=== PATIENT | female | born 1950 | race Caucasian/White ===

== ENCOUNTER 2021-11-09 17:55 | Emergency (ER) | payer MEDICARE, OTHER ==
--- NOTE | 2021-11-09 18:11 | ERPHSYRPT ---
- History of Present Illness Time Seen by Provider: 11/09/21 18:11 Source: patient Exam Limitations: no limitations Physician History: This is a 71-year-old white female who was carrying groceries to her residence and lost her footing fell back and hit the back of her head. She did not lose consciousness. Patient does take Plavix at night. Patient has a history of arrhythmias, gastroesophageal reflux disease, pacemaker placement, anxiety and TIAs in the past. Occurred: just prior to arrival Severity: mild Head Injury Location: occipital Method of Injury: direct blow Loss of Consciousness: no loss of consciousness Associated Symptoms: denies symptoms Allergies/Adverse Reactions: niacin [Niacin] Allergy (Severe, Verified 11/09/21 18:13) red thru "all my body", "called rescue cause of my breathing" prednisone Allergy (Intermediate, Verified 11/09/21 18:13) red flushed face benzonatate [Benzonatate] Allergy (Mild, Verified 11/09/21 18:13) red flushed face hydrocodone bitartrate [From Vicodin] Allergy (Mild, Verified 11/09/21 18:13) red flushed face nifedipine [From Procardia XL] Allergy (Mild, Verified 11/09/21 18:13) red flushed face propoxyphene napsylate [From Darvocet-N 100] Allergy (Mild, Verified 11/09/21 18:13) red flushed face prednisolone Adverse Reaction (Intermediate, Verified 11/09/21 18:13) "face flushes" Home Medications: Buspirone HCl [Buspar] 7.5 mg PO BID 09/13/19 [History] Clopidogrel Bisulfate [PLAVIX 75 MG Tablet] 75 mg PO DAILY 09/13/19 [History] Cyanocobalamin 500 Mcg [Vitamin B-12 500 MCG] 1,000 mcg PO DAILY 09/13/19 [History] Dexlansoprazole [Dexilant] 60 mg PO DAILY 09/13/19 [History] Diazepam [Valium] 2 mg PO BID 09/13/19 [History] Duloxetine HCl [Cymbalta] 60 mg PO DAILY 09/13/19 [History] Metoprolol Tartrate 25 mg [Lopressor 25MG Tab] 25 mg PO BID 09/13/19 [History] Multivitamin [Multivitamins] 6 ea PO DAILY 09/13/19 [History] Pregabalin [Lyrica 75 mg Cap] 75 mg PO BID 09/13/19 [History] Hx Tetanus, Diphtheria Vaccination/Date Given: Yes Hx Influenza Vaccination/Date Given: Yes (2010) Hx Pneumococcal Vaccination/Date Given: Yes (2006) Travel Risk - International Travel Have you traveled outside of the country in past 3 weeks: No - Coronavirus Screening Are you exhibiting any of the following symptoms?: No Close contact with a COVID-19 positive Pt in past 14-21 Days: No - Review of Systems Constitutional: No Symptoms Eyes: No Symptoms Ears, Nose, & Throat: No Symptoms Respiratory: No Symptoms Cardiac: No Symptoms Abdominal/Gastrointestinal: No Symptoms Genitourinary Symptoms: No Symptoms Musculoskeletal: No Symptoms Skin: No Symptoms Neurological: Headache (Mild localized occipital) Psychological: No Symptoms Endocrine: No Symptoms Hematologic/Lymphatic: No Symptoms Immunological/Allergic: No Symptoms All Other Systems: Reviewed and Negative - Past Medical History Pertinent Past Medical History: Yes Neurological History: TIA ENT History: Cataracts Cardiac History: Arrhythmia, Other Respiratory History: No Pertinent History Endocrine Medical History: No Pertinent History Musculoskeletal History: Osteoarthritis GI Medical History: GERD, Gallbladder Disease History: No Pertinent History Psycho-Social History: Anxiety, Depression Female Reproductive Disorders: No Pertinent History Other Medical History: TIA in 2002, Pacemaker, L2-L5 buldging discs - Past Surgical History Past Surgical History: Yes Neuro Surgical History: No Pertinent History Cardiac: Pacemaker Respiratory: No Pertinent History Gastrointestinal: Cholecystectomy Genitourinary: No Pertinent History Musculoskeletal: Other Female Surgical History: Hysterectomy Other Surgical History: Foot Surgery, lucille.Carpal Tunnel, bariatric surgery-2008, barretts esoph. - Social History Smoking Status: Never smoker Exposure to second hand smoke: No Drug Use: none Patient Lives Alone: No - Nursing Vital Signs Nursing Vital Signs: Initial Vital Signs Temperature 96.3 F 11/09/21 18:00 Pulse Rate 77 11/09/21 18:00 Respiratory Rate 18 11/09/21 18:00 Blood Pressure 148/86 11/09/21 18:00 O2 Sat by Pulse Oximetry 100 11/09/21 18:00 Pain Scale Pain Intensity 5 - Nathaniel Coma Score Best Eye Response (Nathaniel): (4) open spontaneously Best Verbal Response (Nathaniel): (5) oriented Best Motor Response ([place]): (6) obeys commands Nathaniel Total: 15 - Physical Exam General Appearance: no apparent distress, alert, anxiety Head Injury: tenderness (Septal region. No lacerations no abrasions) Eye Exam: bilateral eye: normal inspection, PERRL, EOMI ENT Exam: airway nml Neck Exam: supple, trachea midline, full range of motion, normal alignment, normal inspection Cardiovascular/Respiratory Exam: chest non-tender, no respiratory distress Gastrointestinal/Abdominal Exam: soft, non tender, no distention Pelvic Exam: not done Rectal Exam: not done Back Exam: normal inspection, normal range of motion, No CVA tenderness, No vertebral tenderness Extremity Exam: non-tender, normal range of motion, normal inspection Mental Status Exam: alert, oriented x 3, cooperative author agent Exam: normal hearing, normal speech, PERRL Coordination/Gait Exam: normal finger to nose, normal gait, normal cerebellar function Motor/Sensory Exam: no motor deficit, no sensory deficit, no pronator drift Skin Exam: normal color, warm, dry Lymphatic Exam: No adenopathy SpO2 Interpretation: normal O2 Delivery: Room Air - Course Nursing assessment & vital signs reviewed: Yes Ordered Tests: Active Orders 24 hr Category Date Time Status HEAD WITHOUT CONTRAST [CT] Stat Exams 11/09/21 18:11 Taken - Progress Progress: unchanged Progress Note: 11/09/21 19:10 CAT scan of the head without contrast shows no acute intracranial abnormality. Counseled pt/family regarding: diagnosis, need for follow-up, rad results - Departure Departure Disposition: Home Clinical Impression: Head injury Condition: Stable Critical Care Time: No Referrals: LEEANN ESPARZA [Primary Care Provider] - Follow up/PCP as directed Additional Instructions: Ice pack to tender area 3 times a day for 48 hours. Hold your Plavix tonight and restart tomorrow evening. Return to the emergency department if you are having severe headaches, visual changes, vomiting issues.
[2021-11-09 19:07] VITALS: BP 124/80; PULSE 72; O2SAT 95
--- NOTE | 2021-11-09 19:33 | XRAY ---
Indication: Posterior head injury following fall. Blood thinner therapy. Multiple contiguous axial images obtained through the head without contrast. Comparison: February 04, 2016 Stable remote lacunar infarct left thalamus. No acute intracranial hemorrhage, abnormal extra-axial fluid collection, or mass effect. Fourth ventricle is midline without hydrocephalus. Mejias-white matter differentiation preserved. Bony calvarium intact. Visualized paranasal sinuses and mastoid air cells are clear. Impression: Stable remote lacunar infarct left thalamus. Remaining CT head without contrast exam is negative. Comment: Preliminary interpretation made by [facility]. No critical discrepancy.
== END 2021-11-09 19:18 | disposition home or self-care (01) ==
LOC: ED 17:55
DX: S09.90XA Unspecified injury of head, initial encounter (principal); W19.XXXA Unspecified fall, initial encounter; Z79.02 Long term (current) use of antithrombotics/antiplatelets; Z79.899 Other long term (current) drug therapy
CPT/HCPCS: 70450; 99282

== ENCOUNTER 2024-10-30 15:02 | Emergency (ER) | payer MEDICARE, OTHER ==
[2024-10-30 16:00] VITALS: RESP 18; TEMP 97.4
--- NOTE | 2024-10-30 16:10 | ERPHSYRPT ---
- History of Present Illness Time Seen by Provider: 10/30/24 16:00 Source: patient Exam Limitations: no limitations Physician History: Patient is a 74-year-old female presents to our ED for evaluation of dysuria urgency and frequency. Patient has a history of recurrent UTI. She just completed her third round of Macrobid. Patient has had urine cultures which revealed the urine to be sensitive to Macrobid. No other systemic manifestations. No back pain. No fever no nausea no vomiting. Patient otherwise feels well. Daughter at bedside. They voiced no other complaints or concerns at this time. Patient taking [id number] Azo prior to arrival. Patient currently resting comfortably. Portions of this note were created with voice recognition technology. There may be grammatical, spelling, punctuation or sound alike errors Timing/Duration: today Severity: moderate Modifying Factors: Improves With: nothing Associated Symptoms: denies symptoms Allergies/Adverse Reactions: niacin [Niacin] Allergy (Severe, Verified 11/09/21 18:13) red thru "all my body", "called rescue cause of my breathing" prednisone Allergy (Intermediate, Verified 11/09/21 18:13) red flushed face benzonatate [Benzonatate] Allergy (Mild, Verified 11/09/21 18:13) red flushed face hydrocodone bitartrate [From Vicodin] Allergy (Mild, Verified 11/09/21 18:13) red flushed face nifedipine [From Procardia XL] Allergy (Mild, Verified 11/09/21 18:13) red flushed face propoxyphene napsylate [From Darvocet-N 100] Allergy (Mild, Verified 11/09/21 18:13) red flushed face prednisolone Adverse Reaction (Intermediate, Verified 11/09/21 18:13) "face flushes" Home Medications: Buspirone HCl [Buspar] 7.5 mg PO BID 09/13/19 [History] Clopidogrel Bisulfate [PLAVIX 75 MG Tablet] 75 mg PO DAILY 09/13/19 [History] Cyanocobalamin 500 Mcg [Vitamin B-12 500 MCG] 1,000 mcg PO DAILY 09/13/19 [History] Dexlansoprazole [Dexilant] 60 mg PO DAILY 09/13/19 [History] Diazepam [Valium] 2 mg PO BID 09/13/19 [History] Duloxetine HCl [Cymbalta] 60 mg PO DAILY 09/13/19 [History] Metoprolol Tartrate 25 mg [Lopressor 25MG Tab] 25 mg PO BID 09/13/19 [History] Multivitamin [Multivitamins] 6 ea PO DAILY 09/13/19 [History] Pregabalin [Lyrica 75 mg Cap] 75 mg PO BID 09/13/19 [History] Hx Tetanus, Diphtheria Vaccination/Date Given: Yes Hx Influenza Vaccination/Date Given: Yes (2010) Hx Pneumococcal Vaccination/Date Given: Yes (2006) - Review of Systems All Other Systems: Reviewed and Negative - Past Medical History Pertinent Past Medical History: Yes Neurological History: TIA ENT History: Cataracts Cardiac History: Arrhythmia, Other Respiratory History: No Pertinent History Endocrine Medical History: No Pertinent History Musculoskeletal History: Osteoarthritis GI Medical History: GERD, Gallbladder Disease History: No Pertinent History Psycho-Social History: Anxiety, Depression Female Reproductive Disorders: No Pertinent History Other Medical History: TIA in 2002, Pacemaker, L2-L5 buldging discs - Past Surgical History Past Surgical History: Yes Neuro Surgical History: No Pertinent History Cardiac: Pacemaker Respiratory: No Pertinent History Gastrointestinal: Cholecystectomy Genitourinary: No Pertinent History Musculoskeletal: Other Female Surgical History: Hysterectomy Other Surgical History: Foot Surgery, lucille.Carpal Tunnel, bariatric surgery-2008, barretts esoph. - Social History Smoking Status: Never smoker Exposure to second hand smoke: No Drug Use: none Patient Lives Alone: No - Nursing Vital Signs Nursing Vital Signs: Initial Vital Signs Temperature 97.4 F 10/30/24 15:03 Pulse Rate 68 10/30/24 15:03 Respiratory Rate 18 10/30/24 15:03 Blood Pressure 146/71 10/30/24 15:03 O2 Sat by Pulse Oximetry 95 10/30/24 15:03 Pain Scale Pain Intensity 4 - Physical Exam General Appearance: no apparent distress, alert Eye Exam: PERRL/EOMI, eyes nml inspection Neck Exam: normal inspection, full range of motion Respiratory Exam: normal breath sounds, airway intact, No respiratory distress Cardiovascular Exam: regular rate/rhythm, normal peripheral pulses Gastrointestinal/Abdomen Exam: soft, normal bowel sounds, No tenderness, No mass Back Exam: normal inspection, normal range of motion, No CVA tenderness, No vertebral tenderness Extremity Exam: normal inspection, normal range of motion Neurologic Exam: alert, oriented x 3, cooperative, normal mood/affect, sensation nml, No motor deficits Skin Exam: normal color, warm, dry, No rash Lymphatic Exam: No adenopathy SpO2 Interpretation: normal SpO2: 95 O2 Delivery: Room Air - Course Nursing assessment & vital signs reviewed: Yes Ordered Tests: Active Orders 24 hr Category Date Time Status CULTURE,URINE Stat Lab 10/30/24 17:15 Received UA W/RFX UR CULTURE Stat Lab 10/30/24 17:15 Completed Lab/Rad Data: Laboratory Results 10/30/24 Range/Units 17:15 Urine Color [place] A (Yellow) Urine Appearance Turbid A (Clear) Urine pH 5.5 (4.6-8.0) Ur Specific [place] 1.015 (1.005-1.030) Urine Protein 30 (Negative) Urine Glucose (UA) Negative (Negative) mg/dL Urine Ketones Negative (Negative) Urine Blood Moderate A (Negative) Urine Nitrite Positive A (Negative) Urine Bilirubin Small A (Negative) Urine Urobilinogen 1.0 A (0.2) mg/dL Ur Leukocyte Esterase Large A (Negative) U Hyaline Cast (Auto) NONE SEEN (0-2) /LPF Urine Microscopic RBC 21-50 A (0-5) /HPF Urine Microscopic WBC >100 A (0-5) /HPF Ur Epithelial Cells None Seen (None Seen) /HPF Urine Bacteria Moderate A (None Seen) /HPF WBC Casts 0-2 (NEGATIVE) /LPF Urine Culture Reflexed YES (NO) - Progress Progress: improved Progress Note: 74-year-old female recurrent urinary tract infection. Physical exam significant for some suprapubic tenderness. Otherwise physical exam unremarkable. No systemic manifestations of infection no fever no CVA tenderness. UA significant for UTI. Patient has had 3 rounds of Macrobid. We will treat patient with ciprofloxacin instead. Patient received an oral dose of ciprofloxacin 500 mg in our ED. A prescription for the same forwarded to patient's pharmacy. Patient agrees to follow-up with her primary care doctor within 48 hours for reevaluation. She voices no other complaints or concerns at this time. Daughter at bedside. History obtained from patient and daughter. Differential diagnosis is UTI, pyelonephritis, trauma, cystitis Complexity of problems addressed is moderate acute complicated. No critical care time. Complexity of data reviewed and analyzed is moderate. Test ordered test reviewed results analyzed and correlated clinically with history and physical exam. Risk of complication and or risk of morbidity/mortality of patient management is moderate. A prescription for ciprofloxacin forwarded to patient's pharmacy. Vital stable. Time spent to discharge patient is approximately 15 minutes. Plan of care established for shared decision making. No social determinants of health present to impede follow-up. Portions of this note were created with voice recognition technology. There may be grammatical, spelling, punctuation or sound alike errors 10/30/24 17:57 Counseled pt/family regarding: lab results, diagnosis, need for follow-up - Departure Departure Disposition: Home Clinical Impression: Recurrent urinary tract infection Condition: Stable Critical Care Time: No Referrals: LEEANN ESPARZA [COURTESY STAFF, [facility]] - Follow up/PCP as directed MILTON JONES MD [ACTIVE STAFF, [facility]] - Follow up/PCP as directed Additional Instructions: Discharge/Care Plan MI HOLLSI was seen on 10/30/24 in the Emergency Room. The patient was counseled regarding Diagnosis,Lab results, Imaging studies, need for follow up and when to return to the Emergency Room. Prescriptions given: Discharge Note I have spoken with the patient and/or caregivers. I have explained the patient's condition, diagnosis and treatment plan based on the information available to me at this time. I have answered the patient's and/or caregiver's questions and addressed any concerns. The patient and/or caregivers have as good understanding of the patient's diagnosis, condition and treatment plan as can be expected at this point. The vital signs have been stable. The patient's condition is stable and appropriate for discharge from the emergency department. The patient will pursue further outpatient evaluation with the primary care physician or other designated or consulting physician as outlined in the discharge instructions. The patient and/or caregivers are agreeable to this plan of care and follow-up instructions have been explained in detail. The patient and/or caregivers have received these instruction. The patient/and or caregivers are aware that any significant change in condition or worsening of symptoms should prompt an immediate return to this or the closest emergency department or call 911. Prescriptions: Ciprofloxacin [Cipro 500 MG] 500 mg PO BID #14 tablet
[2024-10-30 17:35] LABS: Glucose, Urine Negative (Negative); Protein,Urine Dip 30 (Negative); RBC 21-50 /HPF (0-5); WBC >100 /HPF (0-5)
[2024-10-30] MEDS ORDERED: Cipro 500 MG ONE (17:59)
[2024-10-30] MEDS: Cipro 500 MG PO STA (17:59)
[2024-10-30 18:11] VITALS: BP 130/68; PULSE 86; O2SAT 99
== END 2024-10-30 18:14 | disposition home or self-care (01) ==
LOC: ED 15:02
DX: N39.0 Urinary tract infection, site not specified (principal); R30.0 Dysuria; R35.0 Frequency of micturition; Z79.02 Long term (current) use of antithrombotics/antiplatelets; Z79.899 Other long term (current) drug therapy
CPT/HCPCS: 81001; 87077; 87086; 87186; 99283; P9612